=== PATIENT | female | born 1965 | race Caucasian/White ===

== ENCOUNTER 2017-05-03 20:24 | Emergency (ER) | payer OTHER | END 2017-05-03 20:50 | disposition home or self-care (01) | LOC: E/R 20:24 | DX: B02.9 Zoster without complications (principal) | CPT/HCPCS: 99284; Z7502 ==

== ENCOUNTER 2018-04-18 17:47 | Emergency (ER) | payer OTHER ==
[2018-04-18] MEDS: KETOROLAC 30 MG INJ IM (18:58)
[2018-04-18] MEDS: LORAZEPAM 0.5 MG TAB PO (19:00)
== END 2018-04-18 19:17 | disposition home or self-care (01) ==
LOC: FTE 17:47
DX: K08.89 Other specified disorders of teeth and supporting structures (principal)
CPT/HCPCS: 96372; 99284-25; J1885